=== PATIENT | female | born 1980 | race Caucasian/White ===

== ENCOUNTER 2017-05-17 21:32 | Inpatient (IN) | payer BC ==
[~2017-05-17] VITALS: Ht 162.6 cm; Wt 99.8 kg
[2017-05-17] MEDS ORDERED: QUETIAPINE FUM200 M1 PO (22:12)
[2017-05-17] MEDS ORDERED: SEROQUEL25 MG PO (22:13)
[2017-05-17] MEDS ORDERED: AMBIEN10 MG PO (22:13)
[2017-05-17] MEDS ORDERED: NORCO1 TA2 PO (22:14)
[2017-05-17] MEDS ORDERED: DOXEPIN HCL50 MG PO (22:14)
[2017-05-17] MEDS ORDERED: GABAPENTIN300 M4 PO (22:14)
[2017-05-17 23:12] LABS: CALCIUM 8.2 mg/dL (8.5-10.1); CARBON DIOXIDE 21.2 mmol/L (21-32); CHLORIDE SERUM 104 mmol/L (98-107); CREATININE SERUM 0.9 mg/dL (0.6-1.0); GFR1 > 60 mL/min; GLUCOSE SERUM 211 mg/dL (74-106); POTASSIUM SERUM 4.4 mmol/L (3.5-5.1); SODIUM SERUM 135 mmol/L (136-145)
[2017-05-17 23:18] LABS: ALBUMIN 3.5 g/dL (3.4-5.0); ALKALINE PHOSPHATASE 125 U/L (46-116); ALT/SGPT 22 U/L (14-59); AST/SGOT 16 U/L (15-37); BILIRUBIN TOTAL 0.27 mg/dL (0.20-1.00); CHOLESTEROL 159 mg/dL (<200); HDL CHOLESTEROL 44 mg/dL (40-60); MAGNESIUM 2.2 mg/dL (1.8-2.4); TOTAL PROTEIN, SERUM 8.1 g/dL (6.4-8.2)
[2017-05-17 23:21] LABS: BASOPHIL % 0.4 % (0-2); PLATELET COUNT 309 x10^3mcL (130-400)
[2017-05-17 23:24] LABS: RED CELL DISTRIBUTION WIDTH 16.7 % (11.5-14.5)
[2017-05-18 00:32] LABS: AMPHETAMINE QUAL UR NONE DETECTED (NEG <=1000)
[2017-05-18 02:23] LABS: UA SPECIFIC GRAVITY 1.025 (1.005-1.035); microscopic required? YES; urine erythrocyte TRACE (NEGATIVE)
[2017-05-18 02:40] LABS: CHOLESTEROL/HDL RATIO 3.7; PHOSPHOROUS 2.2 mg/dL (2.5-4.9)
[2017-05-18 02:45] LABS: FREE T4 1.26 ng/dL (0.76-1.46); FREE THYROXINE INDEX 2.8 ug/dL (1.4-4.5); T4(THYROXINE) 7.9 ug/dL (4.7-13.3)
[2017-05-18] MEDS ORDERED: PAROXETINE HCL20 M1 PO (02:55)
[2017-05-18 03:11] VITALS: BP 122/69
[2017-05-18 04:29] LABS: T3 TOTAL 1.19 ng/mL
[2017-05-18 06:53] LABS: BASOPHIL % 0.3 % (0-2); PLATELET COUNT 276 x10^3mcL (130-400)
[2017-05-18 06:54] LABS: RED CELL DISTRIBUTION WIDTH 16.6 % (11.5-14.5)
[2017-05-18 07:14] LABS: CALCIUM 7.7 mg/dL (8.5-10.1); CARBON DIOXIDE 24.3 mmol/L (21-32); CHLORIDE SERUM 109 mmol/L (98-107); CREATININE SERUM 0.7 mg/dL (0.6-1.0); GFR1 > 60 mL/min; GLUCOSE SERUM 178 mg/dL (74-106); POTASSIUM SERUM 4.1 mmol/L (3.5-5.1); SODIUM SERUM 137 mmol/L (136-145)
[2017-05-18 09:54] VITALS: BP 113/70
[2017-05-18 13:55] VITALS: BP 120/60
[2017-05-18 22:00] VITALS: BP 124/77
[2017-05-19 05:33] VITALS: BP 114/59
[2017-05-19 10:30] VITALS: BP 120/73
[2017-05-19 14:00] VITALS: BP 138/75
[2017-05-19] MEDS ORDERED: BUS5 PO (15:41)
[2017-05-19] MEDS ORDERED: ATI1 PO (15:44)
[2017-05-19] MEDS ORDERED: AMBIEN10 MG PO (15:45)
[2017-05-19] MEDS ORDERED: METFORMIN HCL1000 MG PO (15:46)
[2017-05-19 16:05] VITALS: BP 138/75
== END 2017-05-19 16:57 | disposition home or self-care (01) | DRG 74 ==
LOC: ED 21:32 → DU 05-18 01:25
PROVIDERS: Emergency Medicine; Family Medicine; ADMIT Family Medicine
DX: G90.8 Other disorders of autonomic nervous system (principal); E87.1 Hypo-osmolality and hyponatremia; F33.9 Major depressive disorder, recurrent, unspecified; R56.9 Unspecified convulsions; Z88.8 Allergy status to other drugs, medicaments and biological substances; E11.65 Type 2 diabetes mellitus with hyperglycemia; E83.51 Hypocalcemia; E83.39 Other disorders of phosphorus metabolism; E02 Subclinical iodine-deficiency hypothyroidism; D50.9 Iron deficiency anemia, unspecified; E78.5 Hyperlipidemia, unspecified; E66.9 Obesity, unspecified; Z68.37 Body mass index [BMI] 37.0-37.9, adult; F41.1 Generalized anxiety disorder; F98.8 Other specified behavioral and emotional disorders with onset usually occurring in childhood and adolescence
CPT/HCPCS: 82962; 83880; 84439; A9579; J2060; J2270; J7030; Q0092; Q9967

== ENCOUNTER 2018-03-03 18:22 | Emergency (ER) | payer OTHER ==
[~2018-03-03] VITALS: Ht 165.1 cm; Wt 99.8 kg
[~2018-03-03 18:22] MED LIST: AMBIEN10 MG PO; ATI1 PO; BUS5 PO; DOXEPIN HCL50 MG PO; GABAPENTIN300 M4 PO; METFORMIN HCL1000 MG PO; NORCO1 TA2 PO; PAROXETINE HCL20 M1 PO; QUETIAPINE FUM200 M1 PO; SEROQUEL25 MG PO
[2018-03-03 18:37] VITALS: Ht 165.1 cm; Wt 99.8 kg
[2018-03-03 20:41] VITALS: BP 132/80
== END 2018-03-03 20:41 | disposition home or self-care (01) ==
LOC: ED 18:22
DX: S06.0X0A Concussion without loss of consciousness, initial encounter (principal); S13.4XXA Sprain of ligaments of cervical spine, initial encounter; F32.9 Major depressive disorder, single episode, unspecified; F41.8 Other specified anxiety disorders; Z88.6 Allergy status to analgesic agent; Z88.8 Allergy status to other drugs, medicaments and biological substances; W07.XXXA Fall from chair, initial encounter; Y93.89 Activity, other specified; Y92.89 Other specified places as the place of occurrence of the external cause; Y99.8 Other external cause status

== ENCOUNTER 2018-03-07 15:59 | Emergency (ER) | payer OTHER ==
[~2018-03-07] VITALS: Ht 165.1 cm; Wt 100.4 kg
[2018-03-07 16:30] VITALS: Ht 165.1 cm; Wt 100.4 kg
[2018-03-07 17:40] VITALS: BP 123/78
== END 2018-03-07 17:39 | disposition home or self-care (01) ==
LOC: ED 15:59
DX: S16.1XXA Strain of muscle, fascia and tendon at neck level, initial encounter (principal); R51 Headache; M54.9 Dorsalgia, unspecified; Z88.6 Allergy status to analgesic agent; Z88.0 Allergy status to penicillin; W07.XXXA Fall from chair, initial encounter; Y93.89 Activity, other specified; Y92.89 Other specified places as the place of occurrence of the external cause; Y99.8 Other external cause status